=== PATIENT | male | born 1985 | race Caucasian/White ===

== ENCOUNTER 2020-07-18 18:26 | Emergency (ER) | payer MEDICARE, OTHER ==
[~2020-07-18 18:26] MED LIST: MOBIC7.5 MG PO
== END 2020-07-18 21:54 | disposition home or self-care (01) ==
LOC: ER1 18:26
DX: U07.1 COVID-19 (principal)
CPT/HCPCS: 99283; U0002

== ENCOUNTER 2021-02-18 14:42 | Emergency (ER) | payer MEDICARE | END 2021-02-18 18:05 | disposition home or self-care (01) | LOC: ER1 14:42 | DX: Z20.822 Contact with and (suspected) exposure to COVID-19 (principal); G40.909 Epilepsy, unspecified, not intractable, without status epilepticus; Z90.49 Acquired absence of other specified parts of digestive tract | CPT/HCPCS: 99283; U0002 ==

== ENCOUNTER 2021-07-13 09:37 | Emergency (ER) | payer MEDICARE, OTHER | END 2021-07-13 11:57 | disposition home or self-care (01) | LOC: ER1 09:37 | DX: J00 Acute nasopharyngitis [common cold] (principal); Z20.822 Contact with and (suspected) exposure to COVID-19 | CPT/HCPCS: 0240U; 99283 ==